=== PATIENT | female | born 1980 | race Caucasian/White ===

== ENCOUNTER 2017-09-24 12:10 | Emergency (ER) | payer OTHER ==
[~2017-09-24] VITALS: Ht 177.8 cm; Wt 75.7 kg
[~2017-09-24 12:10] MED LIST: ACET-1256 PO; IBUP-1050 PO; LORA-741 PO
[2017-09-24 12:20] VITALS: TEMP 37; Ht 177.8 cm; Wt 75.7 kg
--- NOTE | 2017-09-24 12:55 | EMERGENCY ROOM VISIT NOTE ---
ED Visit Note First contact with patient: 12:27 CHIEF COMPLAINT: Sore throat / HISTORY OF PRESENT ILLNESS: This is a 37-year-old female who presents to the emergency department with complaint of throat pain that has been increasing since yesterday, gradual in onset, worse with swallowing. She did not take any medications for her symptoms. No fever or chills. No rash. Denies any posterior neck pain or stiffness. No difficulty breathing. Symptoms came on gradually. There has been no chest pain, no abdominal pain, no nausea or vomiting. She reports a history of strep throat 2 years ago, states this feels similar. She states she is here to be tested for strep throat. REVIEW OF SYSTEMS: A complete 6 point review of systems was reviewed with the patient with pertinent positives and negatives as per history of present illness. All else were negative. PMH: The patient is healthy; there is no significant medical or surgical history. SOCIAL HISTORY: Patient lives at home. She is a current every day smoker. ALLERGIES: Reviewed in chart PHYSICAL EXAM: Vital Signs: Reviewed Nurse's notes. MENTAL STATUS: Alert and oriented. THROAT: The pharynx is not inflamed or swollen. No exudates are seen on the tonsils. The oropharyngeal airway is patent. Uvula is midline and no abscess is seen. No trismus. SKIN: Clear and dry, no eruptions. No cyanosis, no petechiae. ED COURSE: I examined the patient. Differential diagnosis includes viral URI, pharyngitis, strep pharyngitis, among others. Rapid strep done, which is negative. The patient declined any medication for her throat pain. She was updated on the results and encouraged to follow up with her primary care provider, as well as given return precautions should her symptoms worsen, she verbalized understanding. Patient was discharged home in stable condition and ambulatory. Current/Historical Medications No Active Prescriptions or Reported Meds Allergies Coded Allergies: Bupropion (Verified Allergy, Intermediate, HIVES, 01/04/17) Metformin (Verified Allergy, Intermediate, HIVES, 01/04/17) Adhesives (Verified Allergy, Mild, LIGHT RASH, 01/04/17) NOTICES RASH IF BAND-AID IS ON FOR TOO LONG Acetaminophen (Unverified Allergy, Unknown, HEADACHES , 01/04/17) Oxycodone (Unverified Allergy, Unknown, HEADACHES , 01/04/17) Penicillins (Verified Allergy, Unknown, HIVES, 01/04/17) Vital Signs Date Time Temp Pulse Resp B/P (MAP) Pulse Ox O2 Delivery O2 Flow Rate FiO2 09/24/17 13:25 72 20 128/86 99 09/24/17 12:20 99 Room Air 09/24/17 12:20 37.0 87 18 109/74 99 Room Air Departure Information Impression Primary Impression: Acute viral pharyngitis Dispostion Home / Self-Care Condition GOOD Prescriptions No Active Prescriptions or Reported Meds Referrals Kim Morocho D.O. (PCP) Patient Instructions ED Pharyngitis Viral, [facility] Additional Instructions You were seen in the emergency department for your sore throat. The results of your rapid strep screen were found to be NEGATIVE. You will be contacted in 48 -72 hrs with the results of your pending strep culture. For pain and fever control, you can use the following [id number] medicines (if >12 yo): - Regular strength (325mg/tab) Tylenol (acetaminophen) 2 tabs every 4-6 hours as needed. Do not exceed 10 tablets in a 24 hour period. Avoid taking more than 3000 mg of Tylenol per day. This includes any other sources of acetaminophen you may take on a regular basis. - Regular strength (200 mg/tab) Advil (ibuprofen) 3 tabs every 6-8 hours as needed. Do not exceed a dose of 2400 mg per day. - For best results, alternate dosing of Tylenol and Advil every 3-4 hours. In addition to medications, you can also use the following home remedies: - Warm salt-water gargles 3 times per day can soothe your throat and help to fight infection. - Warm tea with honey can soothe your throat. - Cepacol lozenges, Chloraseptic throat sprays Return to the emergency department if your symptoms persist or worsen over the next 2-3 days despite treatment course outlined above. Return to the emergency department if you develop the following symptoms of: inability to swallow solids , liquids, or drool; excessive wheezing or inability to catch your breath; or intractable fever or pain. Follow up with your primary care provider in 2-3 days from today's emergency department visit.
[2017-09-24 13:25] VITALS: BP 128/86; PULSE 72; O2SAT 99
== END 2017-09-24 13:27 | disposition home or self-care (01) ==
LOC: C.EDB 12:11 → C.EDD 13:27
DX: J02.9 Acute pharyngitis, unspecified (principal); F17.210 Nicotine dependence, cigarettes, uncomplicated

== ENCOUNTER → 2017-10-17 | Outpatient (CLI) | payer OTHER | END | disposition home or self-care (01) | LOC: C.LABSPEC 16:04 | PROVIDERS: ATTEND Physician Assistant | DX: Z11.3 Encounter for screening for infections with a predominantly sexual mode of transmission (principal) ==

== ENCOUNTER → 2017-10-17 | Outpatient (CLI) | payer OTHER | END | disposition home or self-care (01) | LOC: C.PAPS 09:05 | PROVIDERS: ATTEND Physician Assistant | DX: Z12.4 Encounter for screening for malignant neoplasm of cervix (principal) ==

== ENCOUNTER → 2017-12-12 | Outpatient (CLI) | payer OTHER | END | disposition home or self-care (01) | LOC: C.PATHSPEC 14:10 | PROVIDERS: ATTEND Obstetrics & Gynecology | DX: N87.0 Mild cervical dysplasia (principal) ==